=== PATIENT | male | born 1950 | race Caucasian/White ===

== ENCOUNTER 2019-02-26 14:57 | Observation (INO) | payer MEDICARE ==
--- NOTE | 2019-02-21 16:06 | HP ---
AMENDED REPORT NOW INCLUDES DESIGNATED COSIGNER - ESIGNED BEFORE ADJUSTMENTS PREOPERATIVE HISTORY AND PHYSICAL: DATE OF ADMISSION/SURGERY: 02/26/19 SURGEON: Hayley Gregory MD * (DICTATED BY ARIS Craft) PROCEDURE: Left total knee arthroplasty. CHIEF COMPLAINT: Left knee pain. HISTORY OF PRESENT ILLNESS: Mr. Dao is a 69-year-old male followed by Dr. Gregory for left knee pain that has become progressively debilitating. He has aching along the joint lines, which make it difficult to ambulate. Stair climbing and prolonged ambulation intensify his pain and he has failed conservative treatments and is seeking surgical intervention with Dr. Gregory at this time. PAST MEDICAL HISTORY: 1. Depression. 2. Obesity. 3. Sleep apnea. 4. Hyperlipidemia. PAST SURGICAL HISTORY: 1. Left arm tendon repair. 2. Hernia repair. 3. Prostate biopsy. CURRENT MEDICATIONS: 1. Zoloft 50 mg 1 tab by mouth daily. 2. Valsartan 80 mg 1 tab by mouth daily. 3. Tums 500 mg 2 chewable tabs by mouth as needed. ALLERGIES: None. FAMILY HISTORY: Negative for heart disease, diabetes, or cancer. SOCIAL HISTORY: He is and resides in [place]. His will be caring for him postoperatively. He denies tobacco, alcohol, or recreational drug use and he exercises sporadically. REVIEW OF SYSTEMS: A 14-point review of systems is positive for bilateral knee pain. Negative for fever, chills, chest pain, or shortness of breath, and all other systems are negative. PHYSICAL EXAMINATION GENERAL: He is a well-developed, well-nourished male, seated on exam table, in no acute distress with appropriate affect. VITAL SIGNS: 65 inches, weight 227 pounds. Pulse 68, blood pressure 112/62 with respirations of 16. HEENT: Normocephalic, atraumatic. Hearing and vision are grossly intact with extraocular movements intact. NECK: Trachea is midline and symmetrical. LUNGS: Clear to auscultation. No wheezes, rales, or rhonchi appreciated. CARDIO: Regular rate and rhythm. Normal S1, S2. No murmurs, rubs, or gallops noted. ABDOMEN: Nondistended. GENITOURINARY: Deferred. MUSCULOSKELETAL: The left lower extremity, skin is pink, dry, and intact with no abrasions or open wounds. There is moderate effusion at the knee with tenderness along the medial and lateral joint lines. Positive Apley's test. No varus or valgus instability. He extends the knee to 10 degrees, flexes to 120 with pain. Sensation is intact with active range of motion of in the ankle and 2+ dorsalis pedis pulse. IMAGING: X-rays show medial [id number] contact with tricompartmental joint space narrowing, osteophyte formation, and subchondral sclerosis. ASSESSMENT: Left knee osteoarthritis. PLAN: Left total knee arthroplasty with Dr. Gregory. The patient's questions were answered and he would like to proceed. Dr. Gregory reviewed the potential risk and complications with the patient today. He will follow up postoperatively and pain medication will be dispensed postoperatively as well. ARIS CRAFT [id number]/[facility] #: [id number] NURY
[2019-02-26] MEDS: Famotidine IV* 10 MG/ML 2 ML (20 mg) IV ONE ×2 (07:59→08:02)
[2019-02-26] MEDS: Gabapentin CAP(*) 300 MG PO ONE ×2 (08:00→08:02)
[2019-02-26] MEDS: Lactated Ringers 1000 ML Bag* 1,000 ML IV SCH (14:54)
[~2019-02-26 14:57] MED LIST: Acetaminophen IV 1GM/100ML * 1,000 MG/100 ML VIAL IVPB ONE; Acetaminophen IV 1GM/100ML * 100 ML ONE; Buffered Lidocaine 1% SYRIN* 1 ML/SYRINGE INTRADERM ONE; Bupivacaine 0.5% SDV PF* 30ML VIAL ONE; Cyclobenzaprine TAB* 10 MG PO PRN; Dexamethasone IV* 4 MG/ML 1 ML (4 MG) IV SLOW PU ONE; Dexamethasone IV* 4 MG/ML 1 ML (4 MG) ONE; DiMENhydriNATE IV* 50 MG/ML VIAL IV PUSH PRN; EPHEDrine (Pressors)* 50 MG/ML VIAL ONE; Famotidine IV* 10 MG/ML 2 ML (20 mg) ONE; Gabapentin CAP(*) 300 MG ONE; Glycopyrrolate IV* 0.2 MG/ML 1 ML VIAL ONE; HYDROmorphone INJ1* 1 MG/ML SYRINGE IV PRN; KETAMINE HCL* 50 MG/ML 10 ML VIAL ONE; Ketorolac INJ* 30 MG/ML 1 ML VIAL IV PRN; Lactated Ringers 1000 ML Bag* 1,000 ML IV SCH; Magnesium Hydroxide LIQ* 30 ML UDC PO PRN; Midazolam* 1 MG/ML 5 ML VIAL (5 MG) ONE; Morphine 10 MG/ML VIAL (1 ml) IV PRN; Naloxone* 0.4 MG/ML 1 ML VIAL IV PRN; Ondansetron INJ* 2 MG/ML VIAL IV PRN; Ondansetron INJ* 2 MG/ML VIAL ONE; Ondansetron ODT TAB* 4 MG PO PRN; Polyethylene Glycol 3350* 17 GM PACKET PO PRN; Propofol* 10 MG/ML 20 ML BTL ONE; ROPIVACAINE 5 MG/ML 30 ML BTL (0.5%) ONE; Scopolamine 1.5 mg* PATCH TRANSDERM PRN; Tranexamic Acid 1,000 MG in NS 0.9% 50 ML IV ONE; ceFAZolin 2 GM PREMIX in ORs 2 GM/50 ML BAG ONE; celeCOXIB CAP* 200 MG ONE; celeCOXIB CAP* 200 MG PO ONE; diPHENhydraMINE IV* 50 MG/ML 1 ml VIAL (BENADRYL) IV PRN; diPHENhydraMINE PO* 25 MG PO PRN; fentaNYL* 50 MCG/ML 2 ML VIAL (100 MCG VIAL) IV PRN; fentaNYL* 50 MCG/ML 2 ML VIAL (100 MCG VIAL) ONE; oxyCODONE/Acetamin 5/325 MG* TAB PO PRN
[2019-02-26] MEDS: traMADol TAB* 50 MG PO SCH ×2 (15:40→22:22)
[2019-02-26] MEDS: Acetaminophen TAB* 325 MG PO SCH ×2 (15:41→23:49)
--- NOTE | 2019-02-26 15:54 | PN ---
Progress Note - Progress Note Date of Service: 02/26/19 Note: Pt seen at bedside POD 0. He feels well without CP, SOB, irregular beats, dizziness or nausea. In pacu he had bigeminy though returned to NSR. He has a hx htn, silvia. Dressing CDI, thigh soft, DF/PF intact, DP2+, sensation intact to light touch distally. I have ordered tele monitoring, BMP, Mg level and consult the hospitalist.
[2019-02-26 16:36] LABS: CO2 Carbon Dioxide 18 mmol/L (22-32); Chloride 108 mmol/L (101-111); Magnesium 1.8 mg/dL (1.9-2.7); Sodium 135 mmol/L (135-145)
[2019-02-26 16:42] LABS: BUN/Creatinine Ratio 20.2 (8-20); Blood Urea Nitrogen 18 mg/dL (6-24); EGFR African American 103.2 (>60); EGFR Non-African American 85.3 (>60); Glucose 156 mg/dL (70-100); Phosphorus 2.7 mg/dL (2.5-5.0)
[2019-02-26 17:00] LABS: Anion Gap 9 mmol/L (2-11)
[2019-02-26] MEDS: ceFAZolin 1 GM ADVAN(*) 1 GM in NS 0.9% 50 ML* 50 ML IVPB SCH (17:44)
[2019-02-26] MEDS ORDERED: Valsartan TAB* 80 MG PO SCH ×2 (18:00→21:12)
[2019-02-26] MEDS ORDERED: Sertraline* 50 MG TAB PO SCH (18:00)
[2019-02-26] MEDS: oxyCODONE TAB* 5 MG TAB PO PRN (18:41)
--- NOTE | 2019-02-26 19:33 | OP ---
Operative Report - Blank - Operative Report Date of Operation: 02/26/19 Note: JANNIE REAL 1950 Date of Surgery: 02/26/19 Hayley Gregory MD Plant Maintenance Engineer: Jose L HURST did help throughout the procedure with preparation of the knee, wound retraction, manipulation of the knee, and wound closure. Anesthesiologist: Johan García MD Anesthesia Type: Spinal Preoperative Diagnosis: Left severe degenerative osteoarthritis of the knee Postoperative Diagnosis: As above Procedure Performed: Left Total Knee Arthroplasty Tourniquet time: 76 minutes Complications: None Specimen: Bone and cartilage from the left knee joint sent to pathology. Hardware Used: Cemented Anderson and Nephew total knee hardware was used - For the femur a size 6 left oxinium legion posterior stabilized femoral component, for the tibia a size 6 left alba II tibial baseplate, for the insert a size 9mm 5 -6 posterior stabilized articular polyethylene insert, and for the patella a size 35 3-peg all poly patella. Brief History/Indication: JANNIE REAL was known in clinic and had a history of severe left knee pain and swelling. He failed conservative treatment with anti- inflammatories, pain pills, intra-articular injections and physical therapy. He elected to undergo left total knee arthroplasty due to continued pain and decreased quality of life. Radiographs showed severe end stage osteoarthritis of the knee with bone on bone contact. Informed consent was obtained from the patient. He understood the risks of surgery included but were not limited to: bleeding, infection, damage to nearby structures, intraoperative fracture, nerve palsy, failure of the hardware, early loosening, knee stiffness or loss of motion, anesthesia complications, stroke, heart attack, blood clot and . He wished to proceed. He chose the Navio robotic knee system for the procedure and accepted additional pin site risks as well. Intra-Operative Findings: Intraoperatively the patient was noted to have severe loss of cartilage in all 3 compartments of the knee. Description of the Procedure: JANNIE REAL was identified in the preanesthesia unit. His left knee was marked as the correct operative side. Informed consent was signed and placed in the chart. The patient was taken to the operating room and placed under anesthesia without complication. A gibbons catheter was placed. A tourniquet was placed on the left thigh. The left lower extremity was prepped and draped in the usual sterile fashion. Preoperative time-out was made to correctly identify the patient, side and site. Appropriate intraoperative antibiotics were given within one hour of incision. Tourniquet was inflated. A midline incision was made and carried sharply down to the extensor mechanism. A new 10 blade was used to make a standard medial parapatellar arthrotomy. The patella was subluxed laterally. Electrocautery was used to dissect soft tissue off the superomedial tibia to the midsagittal plane. The knee was flexed up. The anterior horn of the lateral meniscus and the ACL/PCL were sharply incised. Two checkpoint screws were placed, one in the medial femoral condyle and one on the medial tibial plateau. Two pins were placed in the femur and two in the tibia. Computer infrared arrays were attached and the bony anatomy of the patient was mapped using the Sr.Pago robotic system. The implant positions were then chosen. A The Loginza robotic jeronimo was used to make the distal femoral cut. The external rotation guide was pinned on the distal femur and the distal femur was sized to a size 6. The size 6 multi-cutting jig was pinned on the distal femur. The oscillating saw was used to make the appropriate 4 chamfer cuts. Next the PCL was completely released. The extramedullary tibial cutting guide was pinned on the proximal tibia using the Sr.Pago robotic system's angle guide. The oscillating saw was used to make the proximal tibial cut perpendicular to the mechanical axis of the tibia. The bone was carefully removed. The knee was brought out into full extension. The spacer block was placed and had excellent fit with the knee in full extension. The medial and lateral ligaments were well balanced. The flexion and extension gaps were well balanced. The knee was flexed up. Lamina mrp controller was placed both medially and laterally. Any remaining meniscus was removed with electrocautery. Curved osteotome was used to remove any posterior osteophytes. The tibial tray and drop marcy were placed and confirmed a satisfactory tibial cut. The size 6 left femoral trial was impacted onto the distal femur. This trial had excellent fit and stability. The box for the posterior stabilized implant was prepared using a box cut osteotome and a reamer. Next a tibial tray trial and 9 mm insert trial was placed. The knee was taken through a range of motion and had full extension to 130 degrees of flexion. Patellofemoral tracking was satisfactory. Final range of motion and position of the implants was logged in the navtagWALLET system. The two screws and 4 pins were removed without complication. The patella was inverted and sized to a size 35. Three peg holes were drilled through the size 35 drill guide. The trial patella was placed and the knee was taken through a range of motion. There was satisfactory patellofemoral tracking. All trials were removed. The tibia was subluxed anteriorly and sized to a size 6. The proximal tibial was prepared with a size 6 keel punch. All bony cut surfaces were irrigated with sterile saline and dried. Final implants were cemented into place starting with the tibia, followed by the femur, and last the patella. A 9 mm insert trial was placed and the knee was brought into full extension. Tourniquet was turned down and the knee was copiously irrigated with sterile saline. Electrocautery was used to obtain meticulous hemostasis. Once the cement had fully cured, the insert trial was removed. Any excess cement was removed from around the hardware and capsule. Final insert chosen was a 9 mm posterior stabilized Alba II articular insert size 5-6. Stability of the insert was checked and noted to be stable. The extensor mechanism was closed using number 1 vicryls. The rest of the incision was closed in a layered fashion using 0 and 2-0 vicryls. The skin was closed using 3-0 nylon suture. Sterile xeroform, 4x4s and webril were used to cover the incision. John wrap and cold pack were used to cover the dressings. The patients anesthesia was reversed without difficulty. He was taken to the PACU in stable condition. Intended weight-bearing will be as tolerated.
[2019-02-26] MEDS ORDERED: Magnesium Oxide TAB* 400 MG PO ONE (21:06)
[2019-02-26] MEDS ORDERED: Potassium Chlor TAB* 20 MEQ TAB.ER PO ONE (21:11)
[2019-02-26] MEDS: Magnesium Hydroxide LIQ* 30 ML UDC PO SCH (22:21)
[2019-02-26] MEDS: Docusate CAP* 100 MG PO SCH (22:22)
--- NOTE | 2019-02-26 22:52 | CONS ---
CONSULTATION REPORT: DATE OF CONSULT: 02/26/19 PROVIDER: ARIS Awad. REQUESTING PROVIDER: Dr. Gregory. REASON FOR CONSULT: Co-management of chronic medical conditions. HISTORY OF PRESENT ILLNESS: Ruperto Dao is a 69-year-old white male with past medical history significant for obesity, anxiety, DEANNE on CPAP, and hypertension , who presented to the hospital today for elective left total knee arthroplasty with Dr. Gregory. The patient failed outpatient medical conservative management of his left knee osteoarthritis and is elected for surgery today. The patient was evaluated in the floor after surgery and is feeling well. He feels his pain is well controlled. He denies chest pain, difficulty breathing, abdominal pain , nausea or vomiting, urinary difficulties. Reportedly, the patient had bigeminy in the PACU and the patient denies symptomatic palpitations. PAST MEDICAL HISTORY: 1. Anxiety. 2. Obesity. 3. Hyperlipidemia. 4. DEANNE, on CPAP. 5. Hypertension. PAST SURGICAL HISTORY: 1. Several prostate biopsies yielding benign findings. 2. Hernia repair. 3. Left arm tendon repair. HOME MEDICATIONS: 1. Valsartan 80 mg p.o. daily. 2. Zoloft 50 mg p.o. daily. ALLERGIES: No known drug allergies. FAMILY HISTORY: Father in his 80s. He had a hemorrhage from his AV fistula. He had a history of ESRD. Mother of unclear causes to the patient in her 80s and was otherwise healthy. He denies family history of heart disease or diabetes or stroke. SOCIAL HISTORY: The patient is . Denies alcohol use, drug use or tobacco use. PHYSICAL EXAM: General: Obese elderly white male, lying in recliner, appearing comfortable, in no acute distress. Head: Normocephalic, atraumatic. Eyes: PERRL. Sclerae anicteric. ENT: Mucous membranes moist. Neck: Supple without JVD. Cardio: Regular rate and rhythm without murmurs, rubs or gallops. Lungs: Clear to auscultation through-out. Abdomen: Soft, nontender, nondistended. Extremities: No clubbing, cyanosis or edema. Left knee in wraps. Neuro: The patient is alert and oriented x3. No focal deficits. Sensation to light touch is intact throughout, able to move all extremities. DIAGNOSTIC STUDIES/LAB DATA: Sodium 135, potassium 3.9, chloride 108, carbon dioxide 18, anion gap 9, BUN 18, creatinine 0.89, glucose 156, calcium 8, magnesium 1.8. ASSESSMENT AND PLAN: Ruperto Dao is a 69-year-old white male with past medical history significant for hypertension, hyperlipidemia, obesity, and obstructive sleep apnea, who presents for left total knee arthroplasty with Dr. Gregory. Hospital Medicine has been consulted for co-management of chronic conditions. 1. Bigeminy in the PACU. The patient has already been placed on telemetry. His bigeminal rhythm has no reason for intervention at this time as his rate is well controlled. He has a minimally decreased magnesium 1.8 and his potassium is 3.9. The goal is generally to keep potassium over 4, magnesium over 2, and I will supplement both of these and repeat tomorrow to see if bigeminy persists despite this oral supplementation. The patient is asymptomatic of this bigeminy. 2. Hypertension. The patient takes losartan at home. I will place holding parameters to hold this for systolic blood pressure less than 110. Continue to monitor his blood pressure, which has been normotensive since he is admitted to the hospital. 3. Obstructive sleep apnea. The patient uses CPAP at home and he brought his home CPAP, which already has orders specifically for the patient to use. Order continuous pulse oximetry overnight as well. 4. Anxiety. Continue the patient on Zoloft. 5. DVT prophylaxis. Eliquis per Orthopedic Surgery. 6. Status post left total knee arthroplasty. Pain management and bowel regimen per Orthopedic Surgery. 7. Disposition, per Orthopedic Surgery. Thank you for allowing us to participate in the care of this patient. We will follow during this admission. ARIS AWAD [id number]/[facility] #: [id number] NURY
[2019-02-27] MEDS: ceFAZolin 1 GM ADVAN(*) 1 GM in NS 0.9% 50 ML* 50 ML IVPB SCH ×2 (01:15→09:20)
[2019-02-27] MEDS: Lactated Ringers 1000 ML Bag* 1,000 ML IV SCH (01:15)
[2019-02-27] MEDS: traMADol TAB* 50 MG PO SCH ×2 (03:27→11:39)
[2019-02-27 05:50] LABS: Hematocrit 38 % (42-52); Hemoglobin 12.5 g/dL (14.0-18.0); Mean Platelet Volume 7.6 fL (7.4-10.4); Platelet Count 227 10^3/uL (150-450)
[2019-02-27 05:58] LABS: Calcium 8.6 mg/dL (8.6-10.3); Potassium 4.1 mmol/L (3.5-5.0)
[2019-02-27 06:04] LABS: BUN/Creatinine Ratio 15.6 (8-20); EGFR African American 94.5 (>60); EGFR Non-African American 78.1 (>60)
[2019-02-27] MEDS: oxyCODONE/Acetamin 5/325 MG* TAB PO PRN ×2 (06:19→12:33)
[2019-02-27 06:59] LABS: Hepatitis C Antibody Negative (Negative)
[2019-02-27] MEDS: oxyCODONE TAB* 5 MG TAB PO PRN ×2 (07:56→15:21)
[2019-02-27] MEDS: Acetaminophen TAB* 325 MG PO SCH (07:58)
[2019-02-27] MEDS ORDERED: Vitamin THERAPEUTIC TAB PO SCH (09:00)
[2019-02-27] MEDS ORDERED: Apixaban* 2.5 MG TAB PO SCH (09:00)
[2019-02-27] MEDS ORDERED: NS 0.9% 50 ML* 50 ML ONE (09:13)
[2019-02-27] MEDS: Magnesium Hydroxide LIQ* 30 ML UDC PO SCH (09:19)
[2019-02-27] MEDS: Docusate CAP* 100 MG PO SCH (09:19)
--- NOTE | 2019-02-27 09:19 | PN ---
Progress Note - Progress Note Date of Service: 02/27/19 SOAP: Subjective: []Pt seen and examined at bedside. He is feeling well without complaints. Knee pain is rated 2-3/10 both at rest and with activity. Denies CP, irregular beats , SOB, dizziness or nausea. He has not yet urinate since removal or gibbons this morning. Has had bigeminy tomorrow though has remained rate controlled, MG and K have been replaced. Desires DC home today. Objective: []gen: Appears well, NAD LLE: left knee dressing CDI, thigh soft, DF/PF intact, DP2+, sensation intact to light touch distally Calves supple and nontender without erythema, edema or palpable cords Assessment: []POD 1 sp LTK Plan: []WBAT PT/OT eliquis 2.5 mg po BID x 30 days post op will change dressing prior to DC today, needs to complete afternoon PT and meet PT goals as well as urinate Vital Signs Temp 98.2 F 02/27/19 07:31 Pulse 57 02/27/19 07:31 Resp 16 02/27/19 09:17 BP 117/64 02/27/19 07:31 Pulse Ox 99 02/27/19 07:31 Intake & Output 02/26/19 02/27/19 02/27/19 18:59 06:59 18:59 Intake Total 2000 1755 Output Total 500 1100 Balance 1500 655 Weight 232 lb Intake: IV Fluids 2000 950 LR 2000 950 IVPB 165 ABX - CEFAZOLIN 165 Oral 640 Output: Gibbons 350 1100 Estimated Blood Loss 150 Laboratory Last Values Hgb 12.5 g/dL (14.0-18.0) L 02/27/19 05:25 Hct 38 % (42-52) L 02/27/19 05:25 Plt Count 227 10^3/uL (150-450) 02/27/19 05:25 MPV 7.6 fL (7.4-10.4) 02/27/19 05:25 Sodium 137 mmol/L (135-145) 02/27/19 05:25 Potassium 4.1 mmol/L (3.5-5.0) 02/27/19 05:25 Chloride 106 mmol/L (101-111) 02/27/19 05:25 Carbon Dioxide 24 mmol/L (22-32) 02/27/19 05:25 Anion Gap 7 mmol/L (2-11) 02/27/19 05:25 BUN 15 mg/dL (6-24) 02/27/19 05:25 Creatinine 0.96 mg/dL (0.67-1.17) 02/27/19 05:25 Est GFR ( Amer) 94.5 (>60) 02/27/19 05:25 Est GFR (Non-Af Amer) 78.1 (>60) 02/27/19 05:25 BUN/Creatinine Ratio 15.6 (8-20) 02/27/19 05:25 Glucose 126 mg/dL (70-100) H 02/27/19 05:25 Hemoglobin A1c 6.0 % (4.0-5.6) H 02/27/19 05:25 Calcium 8.6 mg/dL (8.6-10.3) 02/27/19 05:25 Phosphorus 2.7 mg/dL (2.5-5.0) 02/26/19 16:14 Magnesium 2.0 mg/dL (1.9-2.7) 02/27/19 05:25
[2019-02-27 15:30] VITALS: BP 149/79
[2019-02-28] MEDS ORDERED: Bisacodyl SUPP* 10 MG SUPP PR PRN (12:09)
--- NOTE | 2019-02-28 15:33 | DS ---
Orthopedic Discharge Summary - Discharge Summary Date of Admission:02/26/19 Date of Discharge: 02/27/19 Date of Surgery: 02/26/19 Attending Orthopedic Provider: Dr Gregory Pre-operative Diagnosis: left knee osteoarthritis Operative Procedure: left total knee replacement Disposition of Patient: home Condition of Patient: stable History: JANNIE REAL is a 69 year old M with years of increasingly severe left knee pain. Patient has failed conservative management and has elected to undergo a left total knee replacement Hospital Course: JANNIE was admitted to [facility] on 02/26/19. Patient underwent a left total knee replacement without complication followed by a brief recovery in PACU and transfer to the Short Stay Surgical Unit in stable condition. Our hospitalist service, physical therapy also participated in this patients care. Post-op day 1: patient was alert and in no acute distress. Dressing was clean, dry and intact. Operative extremity dorsiflexion and plantarflexion intact, sensation intact to light touch distally, DP2+. Prior to discharge dressing was changed, incision was clean, dry and intact. Patient was deemed to be medically and orthopedically stable for discharge. Physical therapy goals were met. Home Medications Medication Instructions Recorded Confirmed Type Sertraline* [Zoloft*] 50 mg PO QPM 02/18/19 02/25/19 History Valsartan TAB* [Diovan TAB*] 80 mg PO QPM 02/18/19 02/25/19 History Acetaminophen TAB* [Tylenol TAB*] 975 mg PO Q8H tab 02/27/19 Rx Apixaban* [Eliquis*] 2.5 mg PO BID #60 tab 02/27/19 Rx Docusate CAP* [Colace Cap*] 100 mg PO BID #90 cap 02/27/19 Rx oxyCODONE/Acetamin 5/325 MG* 1 tab PO Q4H PRN tab MDD 10 02/27/19 Rx [Percocet 5/325 TAB*] oxyCODONE/Acetamin 5/325 MG* 2 tab PO Q4H PRN #70 tab MDD 10 02/27/19 Rx [Percocet 5/325 TAB*] Discharge Instructions following Orthopedic Surgery: Activity: * Weight Bearing as tolerated * Continue physical therapy and occupational therapy exercises as shown * Start home PT Wound care: * OK to shower on post-op day 3, no bathing, swimming, or submerging wound. * Use gentle soap, pat dry. Cover with gauze, MIRIAM wrap or tape. * Home nurse to do wound checks Call Orthopedic office for: * Increased drainage * Redness * Increased pain * Fever Go to ER with shortness of breath or chest pain. Diet: * Regular diet * Increase fluids and fiber to prevent constipation. * Continue to use stool softeners, call office if no bowel motion within 48 hours. Medications See Home Medication List in your packet for medications that you should take after discharge. DVT Prophylaxis: Eliquis Dosin.5 mg, 1 tab every 12 hours x 30 days. Increases bleeding tendency Pain Control: Percocet Dosin/325 mg 1-2 tabs by mouth every 4-6 hours as needed for pain. Maximum of 10 tabs per day. Hold for sedation, wean off as soon as pain allows Please note that Percocet contains Tylenol (acetaminophen). Maximum daily dose of Tylenol is 4000 mg from all sources. Antibiotics are required prior to any dental work. FOLLOW UP: Follow up with [[facility]] Within 10-14 days, call for appointment Please call our office with any questions or concerns ([phone])
== END 2019-02-27 16:33 | disposition home or self-care (01) ==
LOC: OR 14:57 → SSU 14:58
PROVIDERS: ADMIT Orthopaedic Surgery Adult Reconstructive Orthopaedic Surgery; ATTEND Orthopaedic Surgery Adult Reconstructive Orthopaedic Surgery
DX: M17.12 Unilateral primary osteoarthritis, left knee (principal); F41.9 Anxiety disorder, unspecified; E66.9 Obesity, unspecified; E78.5 Hyperlipidemia, unspecified; G47.33 Obstructive sleep apnea (adult) (pediatric); I10 Essential (primary) hypertension; Z79.899 Other long term (current) drug therapy
CPT/HCPCS: 36415; 80048; 83036; 83735; 84100; 85014; 85018; 85049; 86803; 88305; 88311; 96361; 96365; 96366; A9270-GY; C1776; G0378; G8978-GP-CJ; G8979-GP-CI; J0690; J1100; J2250; J2405; J2704; J2795; J3010; J3490